=== PATIENT | female | born 1990 ===

== ENCOUNTER 2022-11-07 11:19 | Emergency (ER) | payer MEDICAID, OTHER, SELFPAY ==
[2022-11-07] MEDS ORDERED: Ibuprofen 800 MG TAB ONE (11:43)
== END 2022-11-07 11:58 | disposition home or self-care (01) ==
LOC: ERS 11:19
DX: J06.9 Acute upper respiratory infection, unspecified (principal); Z20.822 Contact with and (suspected) exposure to COVID-19
CPT/HCPCS: 99283; U0003; U0005